=== PATIENT | female | born 1955 | race American Indian/Alaskan Native ===

== ENCOUNTER 2018-03-27 06:24 | Day surgery (SDC) | payer BC ==
[2018-03-13 14:01] VITALS: BMI 31.4
[2018-03-27] MEDS ORDERED: Propofol 10 mg/ml Inj (20 ML) ONE ×2 (08:02→08:29)
[2018-03-27] MEDS ORDERED: Lidocaine 2% Inj (20ml) ONE (08:03)
[2018-03-27] MEDS ORDERED: Sodium Chloride 0.9% 1,000 ML IV SCH (09:00)
[2018-03-27 10:10] VITALS: BP 156/77; PULSE 75; RESP 18; TEMP 97.7; O2SAT 99
== END 2018-03-27 10:45 | disposition home or self-care (01) ==
LOC: ENDO 06:24
PROVIDERS: ATTEND Specialist
DX: K20.9 Esophagitis, unspecified (principal); Z12.11 Encounter for screening for malignant neoplasm of colon; K57.30 Diverticulosis of large intestine without perforation or abscess without bleeding; K29.50 Unspecified chronic gastritis without bleeding; K64.8 Other hemorrhoids; I10 Essential (primary) hypertension; E78.5 Hyperlipidemia, unspecified; K59.00 Constipation, unspecified; D64.9 Anemia, unspecified; Z85.3 Personal history of malignant neoplasm of breast
CPT/HCPCS: 43239; 45378; 88305; 88312; 88342; J2704; J7030; J7040

== ENCOUNTER 2018-04-30 06:02 | Inpatient (IN) | payer BC ==
[2018-04-30] MEDS ORDERED: Vancomycin 1 g Inj ONE ×2 (07:11→09:23)
[2018-04-30] MEDS ORDERED: Tranexamic Acid 2 ML ONE (07:11)
[2018-04-30] MEDS ORDERED: Bupivacaine Liposomal Inj 20 ml ONE (07:12)
--- NOTE | 2018-04-30 07:14 | CP.PCM.HP ---
History of Present Illness - History of Present Illness History of Present Illness: 62 F failed conservative management, elected for a left total knee replacement. NKDA No hx ND, stroke, blood clots, or bleeding disorders Present on Admission - Present on Admission Any Indicators Present on Admission: No History of DVT/PE: No History of Uncontrolled Diabetes: No Review of Systems - Constitutional Constitutional: As Per HPI - EENT Eyes: As Per HPI Ears: As Per HPI Nose/Mouth/Throat: As Per HPI - Breasts Breasts: As Per HPI - Cardiovascular Cardiovascular: As Per HPI - Gastrointestinal Gastrointestinal: As Per HPI - Genitourinary Genitourinary: As Per HPI - Reproductive: Female Reproductive:Female: As Per HPI - Menstruation Menstruation: As Per HPI - Musculoskeletal Additional comments: Left knee pain Past Patient History - Infectious Disease Hx of Infectious Diseases: None - Past Social History Smoking Status: Never Smoked - CARDIAC Hx Hypercholesterolemia: Yes - PULMONARY Hx Asthma: Yes - NEUROLOGICAL Hx Paralysis: No - RENAL Hx Kidney Stones: Yes - HEMATOLOGICAL/ONCOLOGICAL Hx Blood Transfusions: Yes - MUSCULOSKELETAL/RHEUMATOLOGICAL Hx Musculoskeletal Disorders: Yes Hx Arthritis: Yes - PSYCHIATRIC Hx Emotional Abuse: No Hx Physical Abuse: No Hx Substance Use: No - SURGICAL HISTORY Hx Surgeries: Yes Hx Section: Yes Hx Mastectomy: Yes Hx Orthopedic Surgery: Yes (FOOT SX) - ANESTHESIA Hx Anesthesia Reactions: Yes (SOMETIMES LONG TO WAKE UP) Meds Allergies/Adverse Reactions: Allergies Allergy/AdvReac Type Severity Reaction Status Date / Time No Known Allergies Allergy Verified 04/09/18 09:36 Physical Exam - Constitutional Appears: Well, No Acute Distress - Head Exam Head Exam: ATRAUMATIC, NORMAL INSPECTION, NORMOCEPHALIC - Neck Exam Neck exam: Positive for: Full Rom, Normal Inspection - Respiratory Exam Respiratory Exam: NORMAL BREATHING PATTERN - Cardiovascular Exam Cardiovascular Exam: RRR - Expanded Lower Extremities Exam Left Knee exam: crepitus, effusion, tenderness - Neurological Exam Neurological exam: Alert, CN II-XII Intact, Normal Gait - Psychiatric Exam Psychiatric exam: Normal Mood - Skin Skin Exam: Dry, Intact, Normal Color Assessment & Plan (1) Osteoarthritis of left knee Assessment and Plan: NPO T&S OR for elected left total knee replacement Medically optimized for surgery Risks,benefits and alternatives discussed. Patient verbalizes understanding and would like to proceed Status: Acute (2) Hypertension Status: Chronic (3) Hyperlipidemia Status: Chronic (4) Asthma Status: Chronic (5) Breast cancer Status: Chronic
[2018-04-30] MEDS ORDERED: Morphine 1 mg/ml preservative-free Inj(Duramorph) IT ONE (07:30)
[2018-04-30] MEDS ORDERED: Albuterol HFA 90 mcg/actuation (8 g) IH PRN (07:30)
[2018-04-30] MEDS ORDERED: MOMETASONE FUROATE NAS PRN (07:30)
[2018-04-30] MEDS ORDERED: Fluticasone/Vilanterol [Breo Ellipta 100-25 Mcg Inh] INH PRN (07:30)
[2018-04-30] MEDS ORDERED: Morphine 1 mg/ml preservative-free Inj(Duramorph) ONE (07:38)
[2018-04-30] MEDS ORDERED: oxyCODONE 5 mg Immediate Release Tab PO PRN (07:38)
[2018-04-30] MEDS ORDERED: Succinylcholine 200 mg/10 ml Inj IV ONE (07:51)
[2018-04-30] MEDS ORDERED: Etomidate 20 mg/10ml Inj IV ONE (07:51)
[2018-04-30] MEDS ORDERED: Sevoflurane - Inhalation Anesthetic Liq (250 ml) ONE (08:35)
[2018-04-30] MEDS ORDERED: Phenylephrine 10 mg/ml Inj ONE (09:43)
[2018-04-30] MEDS ORDERED: Neostigmine Methylsulfate 3mg/3ml Syringe IV ONE (10:19)
[2018-04-30] MEDS ORDERED: HYDROmorphone 0.5 mg/0.5 ml ISec IVP PRN (10:34)
--- NOTE | 2018-04-30 10:42 | PCM.SURG1 ---
Surgeon's Initial Post Op Note - Surgeon's Notes Surgeon: Niru Hernández MD Bonbon Dipper: Ihsan Benitez PA-C Type of Anesthesia: General Endo, Spinal Anesthesia Administered By: Dr. Asencio Pre-Operative Diagnosis: Left knee osteoarthritis Operative Findings: see full note Post-Operative Diagnosis: same Operation Performed: left total knee arthroplasty Specimen/Specimens Removed: none Estimated Blood Loss: EBL {In ML}: 50 Blood Products Given: N/A Drains Used: Hemovac, Wound Vac Post-Op Condition: Fair Date of Surgery/Procedure: 04/30/18 Time of Surgery/Procedure: 10:41
[2018-04-30] MEDS ORDERED: Lactated Ringer's 1,000 ML IV SCH (10:45)
--- NOTE | 2018-04-30 11:25 | RAD ---
Date of service: 04/30/2018 PROCEDURE: Left Knee Radiographs. Portable HISTORY: Pain. COMPARISON: None. FINDINGS: BONES: New left knee prosthesis. Normal alignment. No complicating factors JOINTS: Normal. No osteoarthritis. JOINT EFFUSION: None. OTHER FINDINGS: None. IMPRESSION: New left knee prosthesis. Normal alignment. No complicating factors
[2018-04-30] MEDS ORDERED: Sodium Chloride 0.9% 1,000 ML IV SCH (15:00)
[2018-04-30] MEDS ORDERED: Albuterol 0.083% Inhal Sol (2.5 mg/3 mL) UD IH PRN (15:08)
[2018-04-30] MEDS: HYDROmorphone 0.5 mg/0.5 ml ISec IVP PRN (15:36)
[2018-04-30] MEDS: ceFAZolin IV 2 gm in Dextrose 2 GM/50 ML BAG IVPB SCH ×2 (15:37→23:37)
[2018-04-30 16:53] VITALS: BMI 31.4
[2018-04-30] MEDS ORDERED: Pneumococcal 23-Valent Vaccine IM ONE (16:53)
[2018-04-30] MEDS ORDERED: DiphenhydrAMINE 50 mg/ml Inj IVP PRN (17:22)
[2018-04-30] MEDS ORDERED: Naloxone 0.02 mg/ml Inj (Neonatal) IV PRN (17:24)
--- NOTE | 2018-04-30 20:39 | OP ---
PROCEDURE DATE: 04/30/2018 PREOPERATIVE DIAGNOSIS: Left knee arthritis. POSTOPERATIVE DIAGNOSIS: Left knee arthritis. PROCEDURE: Left total knee arthroplasty. SURGEON: Byron Hernández MD GUEST RELATIONS OFFICER: Dr. Hernández was assisted by Ashely Merrill and Richie Alba, the physician warehouse assistant. Both physician assistants were scrubbed and present throughout the entire case and assisted in patient positioning, retraction as well as wound closure. TYPE OF ANESTHESIA: General with spinal. COMPLICATIONS: None. ESTIMATED BLOOD LOSS: 50 mL. TOURNIQUET TIME: 66 minutes at 300 mmHg. IMPLANT: Biomet Vanguard total knee system. INDICATION FOR PROCEDURE: This is a 62-year-old female with longstanding left knee pain. Clinical examination was consistent with medial and lateral joint line tenderness, pain with patellofemoral grind, pain with weightbearing. Radiographic examination was consistent with advanced tricompartmental degenerative joint disease. After a long period of failed nonsurgical management including medication, injection, activity modifications, recommendations for left total knee arthroplasty. The risks, benefits and alternatives of the procedure were discussed with the patient and an informed consent was obtained. DESCRIPTION OF PROCEDURE: After the surgical site was signed and verified in the preoperative holding area, the patient was placed supine on the operating room table. After administration of general anesthesia, the patient received 2 g of Ancef IV. Tourniquet was placed above the left thigh. A Gardner catheter was inserted. Care was taken to make sure all bony prominences and nerves were well padded and protected. Venodyne boot was placed on the nonoperative extremity and the left lower extremity was prepped and draped in the usual sterile fashion. The left lower extremity was exsanguinated and the tourniquet was inflated. Approximately 10 cm longitudinal midline incision was made. Soft tissues were dissected sharply down to the knee joint. Medial and parapatellar arthrotomy was performed. The anterior fat pad, the medial and lateral menisci and the ACL and PCL were all resected. Once the knee joint was adequately exposed, a step drill was used to drill into the medullary canal of the distal femur. The intramedullary distal guide was inserted and distal femoral resection was performed. Next, the femoral component was sized and then 4-in-1 cut block was placed. Once our anterior and posterior cuts were performed, the box cut was then performed on the distal femur. Our attention was directed to the tibia. The extramedullary tibial guide was pinned into place and a tibial resection was performed. Our flexion and extension gaps were checked and the patient was noted to have full extension and flexion and balance with varus valgus stress. At this point, the medullary canal of the proximal femur was reamed and punched with the cruciate punch. With the trial tibia, trial femur and trial bearing in place, the knee was taken through a range of motion and was noted to be stable with full extension and flexion. Our attention was directed to the patella. Thickness of the patella was measured and our patella resection was performed. The size of the patella was then measured and the holes for patella button were then drilled. The trial patella was placed and the knee was taken through a range of motion. Patella was noted to track normally. At this point, all the trial components were removed and the knee joint was pulse lavaged with antibiotic saline solution. The bony surfaces were dried and actual tibial, femoral and patellar components were cemented into place. Care was taken to remove all excess cement. Once the cement had hardened, the wound was inspected for any debris. The knee joint was once again pulse lavaged and the actual bearing was inserted and locked into place with a cross pin. The tourniquet was deflated and any obvious bleeding was cauterized. A medium Hemovac drain was inserted, and the arthrotomy was closed using #1 Vicryl suture. The subcutaneous tissue was closed using 2-0 Vicryl sutures and the skin was closed using дмитрий. A LORI incisional wound dressing was applied and a knee immobilizer was placed. The patient was awakened from the anesthesia and taken to the recovery room in stable condition. Byron Hernández MD
[2018-05-01] MEDS: HYDROmorphone 0.5 mg/0.5 ml ISec IVP PRN ×3 (03:13→19:50)
[2018-05-01] MEDS: Pantoprazole 40 mg EC Tab PO SCH (06:30)
[2018-05-01 07:08] LABS: BASO # 0.01 K/mm3 (0.0-2.0); BASO % 0.1 % (0.0-3.0); EOS % 0.1 % (1.5-5.0); GRAN # 6.9 (1.4-6.5); GRAN % 73.9 % (50.0-68.0); HEMOGLOBIN 9.4 g/dL (12.0-16.0); LYMPH # 1.3 (1.2-3.4); LYMPH % 14.1 % (22.0-35.0); MEAN CELL VOLUME 85.2 fl (80.0-105.0); MEAN CORPUSCULAR HEMOGLOBIN 27.8 pg (25.0-35.0); MEAN CORPUSCULAR HGB CONC 32.6 g/dl (31.0-37.0); MEAN PLATELET VOLUME 9.5 fl (7.0-11.0); MONO # 1.1 (0.1-0.6); MONO % 11.8 % (1.0-6.0); RBC 3.38 10^6/uL (3.5-6.1); RED CELL DISTRIBUTION WIDTH 14.1 % (11.5-14.5); WHITE BLOOD COUNT 9.3 10^3/ul (4.5-11.0)
[2018-05-01 07:30] LABS: BLOOD UREA NITROGEN 8 mg/dL (7-21); CALCIUM 8.4 mg/dL (8.4-10.5); GFR AFRICAN-AMERICAN > 60; GFR NON-AFRICAN AMERICAN > 60
[2018-05-01] MEDS ORDERED: Potassium Chloride 20 mEq ER Tab PO ONE (07:32)
[2018-05-01] MEDS: Cholecalciferol 1,000 INTLU TAB PO SCH (09:13)
[2018-05-01] MEDS ORDERED: Albuterol 0.083% Inhal Sol (2.5 mg/3 mL) UD IH PRN (09:23)
--- NOTE | 2018-05-01 10:32 | CP.PCM.PN ---
Subjective - Date & Time of Evaluation Date of Evaluation: 05/01/18 Time of Evaluation: 10:30 - Subjective Subjective: Pt awake, alert. Complaining of left knee pain. Pt ambulated with therapy earlier today. Gardner out. Afebrile L knee: dressing and immobilizer in place dressing clean hemovac in place (280cc since OR) NVI distally Hg 9.4 POD#1 Eliquis PT D/c planning to rehab Objective - Vital Signs/Intake and Output Vital Signs (last 24 hours): Temp Pulse Resp BP Pulse Ox 98.3 F 94 H 18 127/76 97 05/01/18 07:23 05/01/18 09:14 05/01/18 07:23 05/01/18 09:14 05/01/18 07:23 Intake and Output: 05/01/18 05/01/18 06:59 18:59 Intake Total 1320 Output Total 2280 125 Balance -960 -125 - Medications Medications: Current Medications Acetaminophen (Tylenol 325mg Tab) 650 mg PO Q6H [facility] Last Admin: 05/01/18 05:34 Dose: 650 mg Albuterol Sulfate (Albuterol 0.083% Inhal Yuridia (2.5 Mg/3 Ml) Ud) 2.5 mg IH [id number] PRN PRN Reason: Wheezing Apixaban (Eliquis) 2.5 mg PO BID [facility] PRN Reason: Protocol Last Admin: 05/01/18 09:14 Dose: Not Given Aspirin (Ecotrin) 81 mg PO QAM [facility] Last Admin: 05/01/18 09:13 Dose: 81 mg Atorvastatin Calcium (Lipitor) 20 mg PO DIN [facility] Last Admin: 04/30/18 17:24 Dose: 20 mg Cholecalciferol (Vitamin D) 1,000 intlu PO DAILY [facility] Last Admin: 05/01/18 09:13 Dose: 1,000 intlu Diphenhydramine HCl (Benadryl) 25 mg IVP Q4H PRN PRN Reason: Itching / Pruritus Docusate Sodium (Colace) 100 mg PO BID [facility] Last Admin: 05/01/18 09:13 Dose: 100 mg Hydrochlorothiazide (Microzide) 12.5 mg PO DAILY [facility] Last Admin: 05/01/18 09:13 Dose: 12.5 mg Hydromorphone HCl (Dilaudid) 0.5 mg IVP Q4H PRN PRN Reason: Pain, severe (8-10) Last Admin: 05/01/18 03:13 Dose: 0.5 mg Sodium Chloride (Sodium Chloride 0.9%) 1,000 mls @ 80 mls/hr IV .[id number] [facility] Last Admin: 04/30/18 15:40 Dose: 80 mls/hr Losartan Potassium (Cozaar) 50 mg PO DAILY [facility] Last Admin: 05/01/18 09:14 Dose: 50 mg Metoclopramide HCl (Reglan) 10 mg IV ONCE PRN PRN Reason: Nausea/Vomiting Montelukast Sodium (Singulair) 10 mg PO DAILY [facility] Last Admin: 05/01/18 09:27 Dose: Not Given Naloxone HCl (Narcan) 0.02 mg IV ONCE PRN PRN Reason: Excess sedation Fluticasone/Vilanterol [Breo Ellipta 100-25 Mcg Inh] 1 inh INH DAILY PRN PRN Reason: Shortness of Breath Non-Formulary Medication (Lubiprostone [Amitiza]) 24 mcg PO DAILY [facility] Non-Formulary Medication (Mometasone Furoate [Nasonex]) 1 puff DINAH DAILY PRN PRN Reason: Sinus symptoms Ondansetron HCl (Zofran Inj) 4 mg IVP Q4H PRN PRN Reason: Nausea/Vomiting Oxycodone HCl (Oxycodone Immediate Release Tab) 5 mg PO Q4H PRN PRN Reason: Pain, moderate (4-7) Pantoprazole Sodium (Protonix Ec Tab) 40 mg PO DAILY [facility] Last Admin: 05/01/18 06:30 Dose: 40 mg Pregabalin (Lyrica) 50 mg PO BID [facility] Last Admin: 05/01/18 09:13 Dose: 50 mg Sennosides (Senokot Tab) 17.2 mg PO HS PRN PRN Reason: Constipation Tamoxifen Citrate (Nolvadex) 20 mg PO DAILY [facility] - Labs Labs: 05/01/18 06:30 05/01/18 06:30
--- NOTE | 2018-05-01 14:18 | CON ---
Copied To: Itz Pina MD Attending MD: Itz Pina MD DATE: HISTORY OF PRESENT ILLNESS: A 62-year-old black female well known to me with history of hypertension, history of breast cancer, recently treated. The patient was admitted for a joint replacement by Dr. Hernández. The patient underwent a total left knee replacement by Dr. Hernández. The patient tolerated the procedure well. She was nauseous and in pain on the day of surgery, however, she is improved today. PHYSICAL EXAMINATION GENERAL: Seen today in bed, awake and alert, oriented x3. CHEST: Clear to auscultation and percussion. HEART: Regular sinus rhythm. EXTREMITIES: Without cyanosis, clubbing or edema. The patient is moving all extremities. Pulses are good bilaterally. The patient has minimal pain today. She is anxious about physical therapy. Wounds are clean and dry. The patient will be reevaluated for possible physical therapy either inpatient or at home with in home therapy. LABORATORY DATA: Unremarkable except for hemoglobin 9.4, potassium is 3.4. BUN and creatinine are stable. IMPRESSION: A 62-year-old white female, status post left knee arthroplasty, doing well. History of breast cancer, history of hypertension. Itz Pina MD
[2018-05-01] MEDS ORDERED: Fluticasone/Vilanterol [Breo Ellipta 100-25 Mcg Inh] INH PRN ×2 (17:12→17:14)
[2018-05-02] MEDS: HYDROmorphone 0.5 mg/0.5 ml ISec IVP PRN (02:19)
[2018-05-02] MEDS: Pantoprazole 40 mg EC Tab PO SCH ×2 (05:27→10:47)
[2018-05-02 06:51] LABS: BASO # 0.01 K/mm3 (0.0-2.0); BASO % 0.1 % (0.0-3.0); EOS # 0.1 (0.0-0.7); EOS % 0.6 % (1.5-5.0); GRAN # 7.07 (1.4-6.5); GRAN % 74.9 % (50.0-68.0); HEMOGLOBIN 9.9 g/dL (12.0-16.0); LYMPH # 1.2 (1.2-3.4); LYMPH % 12.3 % (22.0-35.0); MEAN CELL VOLUME 85.3 fl (80.0-105.0); MEAN CORPUSCULAR HGB CONC 32.8 g/dl (31.0-37.0); MEAN PLATELET VOLUME 9.5 fl (7.0-11.0); MONO # 1.1 (0.1-0.6); MONO % 12.1 % (1.0-6.0); RBC 3.54 10^6/uL (3.5-6.1); RED CELL DISTRIBUTION WIDTH 14.1 % (11.5-14.5); WHITE BLOOD COUNT 9.4 10^3/ul (4.5-11.0)
[2018-05-02 07:30] LABS: BLOOD UREA NITROGEN 5 mg/dL (7-21); CALCIUM 9.2 mg/dL (8.4-10.5); GFR AFRICAN-AMERICAN > 60; GFR NON-AFRICAN AMERICAN > 60
--- NOTE | 2018-05-02 08:32 | CP.PCM.PN ---
Subjective - Date & Time of Evaluation Date of Evaluation: 05/02/18 Time of Evaluation: 07:57 - Subjective Subjective: Patient seen and examined. Alert and awake, sitting up in bed. She states she is doing good, pain is controlled VSS Afebrile WBC 9.4 Hgb 9.9 L knee: dressings, hemovac and PICCO removed. Incision clean and intact. No erythema or drainage. Mild swelling. Incision cleaned and aquacel dressing applied. Calf and thigh soft and nontender. NVI distally POD#2 s/p L TKA Cont DVT prophylaxis Cont PT Cont incentive spirometer TCU today discussed with Dr. Hernández, agrees with above. Objective - Vital Signs/Intake and Output Vital Signs (last 24 hours): Temp Pulse Resp BP Pulse Ox 98.3 F 94 H 18 127/83 97 05/02/18 06:00 05/02/18 06:00 05/02/18 06:00 05/02/18 06:00 05/02/18 06:00 Intake and Output: 05/02/18 05/02/18 06:59 18:59 Intake Total 300 Output Total 140 Balance 160 - Medications Medications: Current Medications Acetaminophen (Tylenol 325mg Tab) 650 mg PO Q6H [facility] Last Admin: 05/02/18 05:28 Dose: 650 mg Albuterol Sulfate (Albuterol 0.083% Inhal Yuridia (2.5 Mg/3 Ml) Ud) 2.5 mg IH [id number] PRN PRN Reason: Wheezing Apixaban (Eliquis) 2.5 mg PO BID [facility] PRN Reason: Protocol Last Admin: 05/01/18 17:42 Dose: 2.5 mg Aspirin (Ecotrin) 81 mg PO QAM [facility] Last Admin: 05/01/18 09:13 Dose: 81 mg Atorvastatin Calcium (Lipitor) 20 mg PO DIN [facility] Last Admin: 05/01/18 17:41 Dose: 20 mg Cholecalciferol (Vitamin D) 1,000 intlu PO DAILY [facility] Last Admin: 05/01/18 09:13 Dose: 1,000 intlu Diphenhydramine HCl (Benadryl) 25 mg IVP Q4H PRN PRN Reason: Itching / Pruritus Docusate Sodium (Colace) 100 mg PO BID [facility] Last Admin: 05/01/18 17:41 Dose: 100 mg Home Med (Home Med) 1 unit PO DAILY [facility] Home Med (Home Med) 1 unit INH DAILY PRN PRN Reason: Shortness of Breath Hydrochlorothiazide (Microzide) 12.5 mg PO DAILY [facility] Last Admin: 05/01/18 09:13 Dose: 12.5 mg Hydromorphone HCl (Dilaudid) 0.5 mg IVP Q4H PRN PRN Reason: Pain, severe (8-10) Last Admin: 05/02/18 02:19 Dose: 0.5 mg Losartan Potassium (Cozaar) 50 mg PO DAILY [facility] Last Admin: 05/01/18 09:14 Dose: 50 mg Metoclopramide HCl (Reglan) 10 mg IV ONCE PRN PRN Reason: Nausea/Vomiting Montelukast Sodium (Singulair) 10 mg PO DAILY [facility] Last Admin: 05/01/18 09:27 Dose: Not Given Naloxone HCl (Narcan) 0.02 mg IV ONCE PRN PRN Reason: Excess sedation Non-Formulary Medication (Mometasone Furoate [Nasonex]) 1 puff DINAH DAILY PRN PRN Reason: Sinus symptoms Ondansetron HCl (Zofran Inj) 4 mg IVP Q4H PRN PRN Reason: Nausea/Vomiting Oxycodone HCl (Oxycodone Immediate Release Tab) 5 mg PO Q4H PRN PRN Reason: Pain, moderate (4-7) Pantoprazole Sodium (Protonix Ec Tab) 40 mg PO DAILY [facility] Last Admin: 05/02/18 05:27 Dose: 40 mg Pregabalin (Lyrica) 50 mg PO BID [facility] Last Admin: 05/01/18 17:42 Dose: 50 mg Sennosides (Senokot Tab) 17.2 mg PO HS PRN PRN Reason: Constipation Tamoxifen Citrate (Nolvadex) 20 mg PO DAILY [facility] Last Admin: 05/01/18 13:58 Dose: 20 mg - Labs Labs: 05/02/18 06:20 05/02/18 06:20 Assessment and Plan (1) Osteoarthritis of left knee Status: Acute (2) Hypertension Status: Chronic (3) Hyperlipidemia Status: Chronic (4) Asthma Status: Chronic (5) Breast cancer Status: Chronic
[2018-05-02] MEDS: Cholecalciferol 1,000 INTLU TAB PO SCH (10:52)
[2018-05-02 15:04] VITALS: BP 143/83; PULSE 106; RESP 20; TEMP 97.9; O2SAT 98
--- NOTE | 2018-05-02 15:30 | PN ---
Copied To: Itz Pina MD Attending MD: Itz Pina MD DATE: 05/02/2018 SUBJECTIVE: The patient is a 62-year-old black female, status post left total knee replacement. The patient did well, walked yesterday with minimal assistance. There is minimal swelling change. Wound is clean and dry. Extremities, no cyanosis, clubbing, or edema. There is no evidence of DVT. Patient is awake, alert, and oriented x3. She has minimal discomfort and pain. Patient will be transferred to TCU for continued rehabilitation. Itz Pina MD
[2018-05-03] MEDS ORDERED: Fluticasone Nasal 50 mcg/Spray NS SCH (18:00)
== END 2018-05-02 19:12 | DRG 470 ==
LOC: SDS 06:02 → 5RNO 07:22 → EDSTATUS 07:30 → 5RNO 12:38
PROVIDERS: ADMIT Orthopaedic Surgery; ATTEND Orthopaedic Surgery
PROC: 0SRD0J9 Replacement of Left Knee Joint with Synthetic Substitute, Cemented, Open Approach (ICD-10-PCS; principal; 2018-04-30 07:30)
DX: M17.12 Unilateral primary osteoarthritis, left knee (principal); E78.00 Pure hypercholesterolemia, unspecified; I10 Essential (primary) hypertension; J45.909 Unspecified asthma, uncomplicated; Z85.3 Personal history of malignant neoplasm of breast; Z87.442 Personal history of urinary calculi

== ENCOUNTER 2018-05-02 19:14 | Inpatient (IN) | payer BC ==
[2018-05-02] MEDS ORDERED: Albuterol 0.083% Inhal Sol (2.5 mg/3 mL) UD INH PRN (19:47)
[2018-05-02] MEDS ORDERED: DiphenhydrAMINE 50 mg/ml Inj IVP PRN (19:47)
[2018-05-02] MEDS ORDERED: BREO ELLIPTA 100/25 MCG INH INH PRN (19:47)
[2018-05-02] MEDS ORDERED: oxyCODONE 5 mg Immediate Release Tab PO PRN (19:47)
[2018-05-03] MEDS: Pantoprazole 40 mg EC Tab PO SCH (05:19)
[2018-05-03 07:14] LABS: BASO # 0.01 K/mm3 (0.0-2.0); BASO % 0.1 % (0.0-3.0); EOS # 0.3 (0.0-0.7); EOS % 3.2 % (1.5-5.0); GRAN # 6.76 (1.4-6.5); GRAN % 69.3 % (50.0-68.0); HEMOGLOBIN 9.9 g/dL (12.0-16.0); LYMPH # 1.7 (1.2-3.4); LYMPH % 17.6 % (22.0-35.0); MEAN CORPUSCULAR HGB CONC 32.9 g/dl (31.0-37.0); MEAN PLATELET VOLUME 9.5 fl (7.0-11.0); MONO % 9.8 % (1.0-6.0); RBC 3.54 10^6/uL (3.5-6.1); RED CELL DISTRIBUTION WIDTH 14.3 % (11.5-14.5); WHITE BLOOD COUNT 9.8 10^3/ul (4.5-11.0)
[2018-05-03 07:26] LABS: BLOOD UREA NITROGEN 8 mg/dL (7-21); CALCIUM 8.9 mg/dL (8.4-10.5); GFR AFRICAN-AMERICAN > 60; GFR NON-AFRICAN AMERICAN > 60
[2018-05-03] MEDS: Cholecalciferol 1,000 INTLU TAB PO SCH (09:41)
[2018-05-03] MEDS: BREO ELLIPTA 100/25 MCG INH INH PRN (09:46)
[2018-05-03] MEDS: AMITIZA 24 MCG PO SCH (09:46)
--- NOTE | 2018-05-03 10:35 | HP ---
Copied To: Itz Pina MD Attending MD: Itz Pina MD HISTORY OF PRESENT ILLNESS: A 62-year-old black female, admitted to the hospital for left total knee replacement. The patient had the total knee replacement by Dr. Hernández. The patient was transferred to TCU. The patient is doing well. Vital signs are stable. She has history of breast cancer and hypertension. The patient is stable. She does have some mild sinus congestion. Otherwise, she is afebrile. Temperature is 99.3. She is postop. She is on Eliquis. Hemoglobin is 9.9. White count is 9.8. Chest is clear to auscultation. Heart examination, regular sinus rhythm. Extremities without cyanosis, clubbing or edema. Her wounds are clean and dry. Itz Pina MD
[2018-05-03] MEDS: Fluticasone Nasal 50 mcg/Spray NS SCH (11:00)
--- NOTE | 2018-05-03 15:02 | CP.PCM.PN ---
Subjective - Date & Time of Evaluation Date of Evaluation: 05/03/18 Time of Evaluation: 14:57 - Subjective Subjective: Patient seen in TCU. Patient is doing well. On CPM machine VSS WBC 9.4 hgb 9.9 L knee: Incision clean and intact with дмитрий in place. No erythema or drainage.Thigh and calf soft and non-tender. NVI distally Cont PT Cont DVT prophylaxis Cont incentive spirometer Objective - Vital Signs/Intake and Output Vital Signs (last 24 hours): Temp Pulse Resp BP Pulse Ox 99.3 F 97 H 22 126/76 05/02/18 22:50 05/03/18 09:40 05/02/18 22:50 05/03/18 09:40 - Medications Medications: Current Medications Acetaminophen (Tylenol 325mg Tab) 650 mg PO Q6H [facility] Last Admin: 05/03/18 09:40 Dose: 650 mg Albuterol Sulfate (Albuterol 0.083% Inhal Yuridia (2.5 Mg/3 Ml) Ud) 2.5 mg INH [id number] PRN PRN Reason: Wheezing Apixaban (Eliquis) 2.5 mg PO BID [facility] PRN Reason: Protocol Last Admin: 05/03/18 09:47 Dose: 2.5 mg Aspirin (Ecotrin) 81 mg PO QAM [facility] PRN Reason: Protocol Last Admin: 05/03/18 09:47 Dose: 81 mg Atorvastatin Calcium (Lipitor) 20 mg PO DIN [facility] PRN Reason: Protocol Cholecalciferol (Vitamin D) 1,000 intlu PO DAILY [facility] PRN Reason: Protocol Last Admin: 05/03/18 09:41 Dose: 1,000 intlu Diphenhydramine HCl (Benadryl) 25 mg IVP Q4H PRN; Protocol PRN Reason: Allergy symptoms Docusate Sodium (Colace) 100 mg PO BID [facility] PRN Reason: Protocol Last Admin: 05/03/18 09:40 Dose: 100 mg Fluticasone Propionate (Flonase) 1 actuation NS DAILY [facility] PRN Reason: Protocol Last Admin: 05/03/18 11:00 Dose: 1 actuation Home Med (Home Med) 1 unit PO DAILY [facility] Last Admin: 05/03/18 09:46 Dose: 1 unit Home Med (Home Med) 1 unit INH DAILY PRN; Protocol PRN Reason: sob Last Admin: 05/03/18 09:46 Dose: 1 unit Hydrochlorothiazide (Microzide) 12.5 mg PO DAILY [facility] PRN Reason: Protocol Last Admin: 05/03/18 09:42 Dose: 12.5 mg Hydromorphone HCl (Dilaudid) 0.5 mg IVP Q4H PRN; Protocol PRN Reason: Pain, severe (8-10) Losartan Potassium (Cozaar) 50 mg PO DAILY [facility] PRN Reason: Protocol Last Admin: 05/03/18 09:40 Dose: 50 mg Montelukast Sodium (Singulair) 10 mg PO DAILY [facility] PRN Reason: Protocol Last Admin: 05/03/18 09:41 Dose: 10 mg Ondansetron HCl (Zofran Inj) 4 mg IVP Q4H PRN; Protocol PRN Reason: Nausea/Vomiting Oxycodone HCl (Oxycodone Immediate Release Tab) 5 mg PO Q4H PRN; Protocol PRN Reason: Pain, moderate (4-7) Pantoprazole Sodium (Protonix Ec Tab) 40 mg PO 0600 [facility] PRN Reason: Protocol Last Admin: 05/03/18 05:19 Dose: 40 mg Pregabalin (Lyrica) 50 mg PO BID [facility] Last Admin: 05/03/18 09:42 Dose: 50 mg Sennosides (Senokot Tab) 17.2 mg PO HS PRN; Protocol PRN Reason: constipation Tamoxifen Citrate (Nolvadex) 20 mg PO DAILY [facility] PRN Reason: Protocol Last Admin: 05/03/18 09:42 Dose: 20 mg - Labs Labs: 05/03/18 06:45 05/03/18 06:45
[2018-05-03] MEDS: HYDROmorphone 0.5 mg/0.5 ml ISec IVP PRN (17:29)
[2018-05-04] MEDS ORDERED: Potassium Chloride 20 mEq ER Tab PO STA (05:08)
[2018-05-04] MEDS: Pantoprazole 40 mg EC Tab PO SCH (07:19)
[2018-05-04] MEDS: AMITIZA 24 MCG PO SCH (10:41)
[2018-05-04] MEDS: Fluticasone Nasal 50 mcg/Spray NS SCH (10:41)
[2018-05-04] MEDS: Cholecalciferol 1,000 INTLU TAB PO SCH (10:44)
[2018-05-04] MEDS: BREO ELLIPTA 100/25 MCG INH INH PRN (11:17)
[2018-05-04] MEDS: HYDROmorphone 0.5 mg/0.5 ml ISec IVP PRN (17:43)
--- NOTE | 2018-05-04 19:24 | PN ---
Copied To: Itz Pina MD Attending MD: Itz Pina MD DATE: 05/03/2018 SUBJECTIVE: A 62-year-old white female status post left total knee replacement. PHYSICAL EXAMINATION: VITAL SIGNS: Stable. Blood pressure is 145/90, temperature is 99. CHEST: Clear to auscultation and percussion. The patient is doing physical therapy and occupational therapy. She is flexing to about 80 degrees at this point. She is afebrile today. Her sinuses feel better. Hemoglobin is 9.9, white count is 5.8. PLAN: Continue physical therapy and occupational therapy. Follow up patient carefully. The patient also has history of recent breast cancer. Itz Pina MD
[2018-05-05] MEDS: Pantoprazole 40 mg EC Tab PO SCH (05:25)
[2018-05-05] MEDS: AMITIZA 24 MCG PO SCH ×2 (05:31→07:37)
[2018-05-05] MEDS: Fluticasone Nasal 50 mcg/Spray NS SCH (09:42)
[2018-05-05] MEDS: Cholecalciferol 1,000 INTLU TAB PO SCH (09:43)
[2018-05-05] MEDS: BREO ELLIPTA 100/25 MCG INH INH PRN (09:43)
--- NOTE | 2018-05-05 14:00 | PN ---
Copied To: Itz Pina MD Attending MD: Itz Pina MD. DATE: 05/05/2018 SUBJECTIVE: This is a 62-year-old black female with history of breast cancer and hypertension, status post left knee replacement. Patient is doing well postoperatively and was seen today at the bedside with Physical Therapy. She was able to get out of the bed on her own without assistance and sit in the chair. She is doing flexion over 90 degrees. PHYSICAL EXAMINATION: VITAL SIGNS: Stable. She is afebrile today. CHEST: Clear to auscultation. HEART: Reveals sinus rhythm. SKIN: Her wounds are clean and dry. LABORATORY DATA: Her potassium is 3.2, hemoglobin is 9.9. ASSESSMENT AND PLAN: To continue physical therapy and occupational therapy and start stairs. Itz Pina MD
[2018-05-05] MEDS: HYDROmorphone 0.5 mg/0.5 ml ISec IVP PRN (22:55)
[2018-05-06] MEDS: Pantoprazole 40 mg EC Tab PO SCH (05:40)
[2018-05-06] MEDS: Home Med 1 UNIT PO SCH (05:40)
--- NOTE | 2018-05-06 08:29 | CP.PCM.PN ---
Subjective - Date & Time of Evaluation Date of Evaluation: 05/06/18 Time of Evaluation: 08:28 - Subjective Subjective: Pt awake, alert. Sitting in chair. Comfortable. Afebrile L knee: dressing changed incision clean and dry no cellulitis or drainage thigh and calf soft Hg. 9.9 cont PT D/c planning to home Objective - Vital Signs/Intake and Output Vital Signs (last 24 hours): Temp Pulse Resp BP Pulse Ox 97.8 F 95 H 16 113/71 98 05/05/18 17:00 05/05/18 17:00 05/05/18 17:00 05/05/18 17:00 05/05/18 17:00 - Medications Medications: Current Medications Acetaminophen (Tylenol 325mg Tab) 650 mg PO Q6H ELLEN Last Admin: 05/06/18 05:41 Dose: 650 mg Albuterol Sulfate (Albuterol 0.083% Inhal Yuridia (2.5 Mg/3 Ml) Ud) 2.5 mg INH [id number] PRN PRN Reason: Wheezing Apixaban (Eliquis) 2.5 mg PO BID ELLEN PRN Reason: Protocol Last Admin: 05/05/18 17:18 Dose: 2.5 mg Aspirin (Ecotrin) 81 mg PO 0800 ELLEN PRN Reason: Protocol Last Admin: 05/05/18 09:40 Dose: 81 mg Atorvastatin Calcium (Lipitor) 20 mg PO DIN ELLEN PRN Reason: Protocol Last Admin: 05/05/18 17:18 Dose: 20 mg Cholecalciferol (Vitamin D) 1,000 intlu PO DAILY ELLEN PRN Reason: Protocol Last Admin: 05/05/18 09:43 Dose: 1,000 intlu Diphenhydramine HCl (Benadryl) 25 mg IVP Q4H PRN; Protocol PRN Reason: Allergy symptoms Docusate Sodium (Colace) 100 mg PO BID ELLEN PRN Reason: Protocol Last Admin: 05/05/18 17:15 Dose: Not Given Fluticasone Propionate (Flonase) 1 actuation NS DAILY ELLEN PRN Reason: Protocol Last Admin: 05/05/18 09:42 Dose: 1 actuation Home Med (Home Med) 1 unit INH DAILY PRN; Protocol PRN Reason: sob Last Admin: 05/05/18 09:43 Dose: 1 unit Home Med (Home Med) 1 unit PO 0600 ELLEN Last Admin: 05/06/18 05:40 Dose: 1 unit Hydrochlorothiazide (Microzide) 12.5 mg PO DAILY [facility] PRN Reason: Protocol Last Admin: 05/05/18 09:42 Dose: 12.5 mg Hydromorphone HCl (Dilaudid) 0.5 mg IVP Q4H PRN; Protocol PRN Reason: Pain, severe (8-10) Last Admin: 05/05/18 22:55 Dose: 0.5 mg Losartan Potassium (Cozaar) 50 mg PO DAILY [facility] PRN Reason: Protocol Last Admin: 05/05/18 09:41 Dose: 50 mg Montelukast Sodium (Singulair) 10 mg PO DAILY [facility] PRN Reason: Protocol Last Admin: 05/05/18 09:43 Dose: 10 mg Ondansetron HCl (Zofran Inj) 4 mg IVP Q4H PRN; Protocol PRN Reason: Nausea/Vomiting Oxycodone HCl (Oxycodone Immediate Release Tab) 5 mg PO Q4H PRN; Protocol PRN Reason: Pain, moderate (4-7) Pantoprazole Sodium (Protonix Ec Tab) 40 mg PO 0600 [facility] PRN Reason: Protocol Last Admin: 05/06/18 05:40 Dose: 40 mg Pregabalin (Lyrica) 50 mg PO BID [facility] Last Admin: 05/05/18 17:18 Dose: 50 mg Sennosides (Senokot Tab) 17.2 mg PO HS PRN; Protocol PRN Reason: constipation Tamoxifen Citrate (Nolvadex) 20 mg PO DAILY [facility] PRN Reason: Protocol Last Admin: 05/05/18 09:40 Dose: 20 mg - Labs Labs: 05/03/18 06:45 05/03/18 06:45
[2018-05-06] MEDS ORDERED: Potassium Chloride 20 mEq ER Tab PO ONE (09:27)
[2018-05-06] MEDS: Fluticasone Nasal 50 mcg/Spray NS SCH (09:32)
[2018-05-06] MEDS: Cholecalciferol 1,000 INTLU TAB PO SCH (09:32)
[2018-05-06] MEDS: BREO ELLIPTA 100/25 MCG INH INH PRN (09:32)
--- NOTE | 2018-05-06 10:09 | US ---
PROCEDURE: Left lower extremity venous US HISTORY: Leg pain and swelling. Evaluate for DVT. PHYSICIAN(S): Ced Camargo MD. TECHNIQUE: Duplex sonography and color-flow Doppler with graded compression were used to evaluate the deep venous system of the left lower extremity. FINDINGS: The visualized deep venous system of the left lower extremity is sonographically normal and compressible. Normal wave forms and augmentation are seen. There is no sonographic evidence for deep venous thrombosis in the visualized segments of the left lower extremity. IMPRESSION: 1. No sonographic evidence for deep venous thrombosis in the visualized segments of the left lower extremity.
--- NOTE | 2018-05-06 11:22 | PN ---
Copied To: Itz Pina MD Attending MD: Itz Pina MD DATE: 05/06/2018 SUBJECTIVE: A 62-year-old black female, admitted to the hospital left total knee replacement. The patient was transferred to [facility]. She is doing well with physical therapy and occupational therapy. She has started doing stairs. Blood pressure is 113/71. She is afebrile. Her hemoglobin is up to 9.9. Potassium is slightly low at 3.2, she will be replaced. Itz Pina MD
[2018-05-06] MEDS: HYDROmorphone 0.5 mg/0.5 ml ISec IVP PRN (13:10)
[2018-05-07] MEDS: HYDROmorphone 0.5 mg/0.5 ml ISec IVP PRN ×2 (01:40→21:30)
[2018-05-07] MEDS ORDERED: BREO ELLIPTA 100/25 MCG INH INH PRN (01:51)
[2018-05-07] MEDS: Pantoprazole 40 mg EC Tab PO SCH (06:22)
[2018-05-07] MEDS: Home Med 1 UNIT PO SCH (06:32)
[2018-05-07] MEDS: Fluticasone Nasal 50 mcg/Spray NS SCH (09:47)
[2018-05-07] MEDS: Cholecalciferol 1,000 INTLU TAB PO SCH (09:50)
--- NOTE | 2018-05-07 11:57 | PN ---
Copied To: Itz Pina MD Attending MD: Itz Pina MD DATE: 05/07/2018 A 62-year-old black female status post total knee replacement, history of breast cancer, history of hypertension. The patient is doing well. Vital signs are stable. Continues physical therapy and occupational therapy. Wounds are clean and dry. The patient has minimal discomfort, approximately 1 out of 10. Plan is to continue to advance her physical therapy. Itz Pina MD
[2018-05-08] MEDS: Home Med 1 UNIT PO SCH (05:49)
[2018-05-08] MEDS: Pantoprazole 40 mg EC Tab PO SCH (05:49)
[2018-05-08] MEDS: Fluticasone Nasal 50 mcg/Spray NS SCH (10:14)
[2018-05-08] MEDS: Cholecalciferol 1,000 INTLU TAB PO SCH (10:16)
[2018-05-08 10:20] VITALS: BP 117/67; PULSE 90
[2018-05-08 13:59] VITALS: RESP 16; TEMP 98.3; O2SAT 94
[2018-05-08] MEDS: HYDROmorphone 0.5 mg/0.5 ml ISec IVP PRN (14:36)
--- NOTE | 2018-05-09 01:52 | DS ---
Copied To: Itz Pina MD Attending MD: Itz Pina MD HISTORY OF PRESENT ILLNESS: A 62-year-old black female admitted with total knee replacement, Dr. Hernández, history of breast cancer, history of hypertension. Patient is being discharged home after completing her course of physical therapy and occupational therapy. PHYSICAL EXAMINATION: VITAL SIGNS: Stable. CHEST: Clear to auscultation and percussion. HEART: Regular sinus rhythm. EXTREMITIES: Without cyanosis, clubbing or edema. Wound is clean and dry. FINAL DISCHARGE DIAGNOSES: Left total knee replacement, history of breast cancer, history of hypertension. Itz Pina MD
== END 2018-05-08 20:24 | disposition home health service (06) | DRG 554 ==
LOC: TRCU 19:14
PROVIDERS: ADMIT Orthopaedic Surgery; ATTEND Internal Medicine
PROC: F07Z9FZ Gait Training/Functional Ambulation Treatment using Assistive, Adaptive, Supportive or Protective Equipment (ICD-10-PCS; principal; 2018-05-03)
PROC: F08Z4FZ Home Management Treatment using Assistive, Adaptive, Supportive or Protective Equipment (ICD-10-PCS; 2018-05-03)
DX: M17.12 Unilateral primary osteoarthritis, left knee (principal); Z96.652 Presence of left artificial knee joint; I10 Essential (primary) hypertension; Z85.3 Personal history of malignant neoplasm of breast